=== PATIENT | female | born 1995 | race Caucasian/White ===

== ENCOUNTER 2017-08-22 03:01 | Emergency (ER) | payer OTHER ==
[~2017-08-22] VITALS: Ht 172.7 cm; Wt 70.0 kg
[2017-08-22] MEDS ORDERED: ONDANSETRON ODT 4 MG PO ONE (03:30)
[2017-08-22] MEDS ORDERED: ONDANSETRON ODT 4 MG ONE (03:33)
[2017-08-22 03:46] VITALS: BP 115/75
== END 2017-08-22 04:14 | disposition home or self-care (01) ==
LOC: ED 04:05
DX: F10.120 Alcohol abuse with intoxication, uncomplicated (principal)
CPT/HCPCS: 99283; Q0162